=== PATIENT | female | born 1950 | race Caucasian/White ===

== ENCOUNTER 2019-11-19 13:42 | Outpatient (RCR) | payer SELFPAY | END 2019-11-19 23:59 | disposition home or self-care (01) | LOC: ANHAUDIO 13:42 | PROVIDERS: PCP Family Medicine Adolescent Medicine; Visit Provider Family Medicine Adolescent Medicine | DX: Z46.1 Encounter for fitting and adjustment of hearing aid (principal) | CPT/HCPCS: 99199 ==

== ENCOUNTER 2021-03-02 11:00 | Outpatient (RCR) | payer MEDICARE, OTHER, SELFPAY ==
--- NOTE | 2020-12-21 09:04 | PCCPR ---
Absent today, not feeling well. Sonja states that her blood sugar was high yesterday and is not feeling well today as a result.
== END 2021-03-02 18:41 | disposition home or self-care (01) ==
LOC: ANHCPREHAB 11:00
PROVIDERS: PCP Physician Assistant; Visit Provider Internal Medicine Cardiovascular Disease
DX: Z95.2 Presence of prosthetic heart valve (principal)
CPT/HCPCS: 93798

== ENCOUNTER 2021-08-22 16:11 | Emergency (ER) | payer MEDICARE, OTHER, SELFPAY ==
--- NOTE | 2021-08-22 16:22 | ED.GENADULT ---
HPI - General Adult General Chief complaint: Fall Stated complaint: Laceration on face Time Seen by Provider: 08/22/21 16:23 Source: patient, family and RN notes reviewed Mode of arrival: ambulatory Limitations: no limitations History of Present Illness HPI narrative: 70-year-old female complaints of lip pain after tripping and falling. Patient states that she got out of her car and tripped over a parking curb and fell forward. Denies any hand shoulder neck back knee or hip pain. No midline tenderness. Denies any loss of consciousness. Bleeding is controlled. Unknown last Tdap Related Data Home Medications Medication Instructions Recorded Confirmed ascorbic acid (vitamin C) 500 mg PO DAILY 12/09/20 12/09/20 aspirin 81 mg PO HS 12/09/20 12/09/20 calcium carb-vit [id number] 1 tablet PO DAILY 12/09/20 12/09/20 [Os-Anmol Ultra] celecoxib [Celebrex] 200 mg PO DAILY 12/09/20 12/09/20 diphenhydramine HCl [Benadryl] 25 mg PO BID 12/09/20 12/09/20 fenofibric acid (choline) 135 mg PO DAILY 12/09/20 12/09/20 [Trilipix] glucosamine-chondroitin [Osteo 2 tablet PO TID 12/09/20 12/09/20 Bi-Flex] hydrochlorothiazide 12.5 mg PO DAILY 12/09/20 12/09/20 levothyroxine 25 mcg PO DAILY 12/09/20 12/09/20 metformin 1,000 mg PO HS 12/09/20 12/09/20 metformin 500 mg PO DAILY 12/09/20 12/09/20 montelukast [Singulair] 10 mg PO HS 12/09/20 12/09/20 yogefgzupoha-uvpzgzpe-dgpepn 1 tablet PO DAILY 12/09/20 12/09/20 [Centrum Silver] omega-3 fatty acids-vitamin E 1 cap BID 12/09/20 12/09/20 [Fish Oil] ramipril 10 mg PO DAILY 12/09/20 12/09/20 rosuvastatin 20 mg PO HS 12/09/20 12/09/20 Allergies Allergy/AdvReac Type Severity Reaction Status Date / Time No Known Allergies Allergy Unverified 03/23/13 18:36 Review of Systems Review of Systems: All systems reviewed & are unremarkable except as noted in HPI and below Constitutional: Constitutional: Reports no additional constitutional complaints, Denies chills and Denies fever(s) Eyes: Eyes: Reports no additional eye complaints ENT: Reports system reviewed and no additional complaints, except as documented Cardiovascular: Cardiovascular: Reports no additional cardiovascular complaints and Denies chest pain Respiratory: Respiratory: Reports no additional respiratory complaints, Denies cough and Denies dyspnea Gastrointestinal: Gastrointestinal: Reports no additional gastrointestinal complaints, Denies abdominal pain, Denies nausea and Denies vomiting Musculoskeletal: Musculoskeletal: Reports no additional musculoskeletal complaints Integumentary/Breasts: Skin/Breast: Reports as per HPI Comments: Top lip abrasion with small puncture wound Neurologic: Reports system reviewed and no additional complaints, except as documented, Denies confusion, Denies vertigo, Denies dizziness, Denies syncope, Denies headache(s), Denies focal weakness, Denies numbness and Denies weakness Psychiatric: Psychiatric: Reports no additional psychiatric complaints Allergic/Immunologic: Allergic/Immunologic: Reports no additional allergic/immunologic complaints [facility] Family History Family History Mother Hypertension Father Hypertension Heart disease Heart attack Social History Social History Smoking packs per day: 1 Smoking cigarettes per day: 20.0 Years smoked: 20 Smoking pack-years: 20.00 Smoking status: Former smoker Tobacco type: cigarettes Comments At the time of my signature, I reviewed and agree with the nursing past medical, surgical, social, and family history. There is no relevant family history pertinent to the patient complaint. Exam Const: General: healthy appearing, no acute distress and alert Nutritional Appearance: well nourished Orientation/consciousness: patient oriented x3 Limitations: no limitations HENMT: Head: normal to inspection Ears: external
[2021-08-22 16:29] VITALS: BP 180/69; PULSE 73; RESP 16; TEMP 36.9; O2SAT 100
[2021-08-22] MEDS: TETANUS,DIPHTHERIA,AC PERTUSSIS ADULT (0.5 ML) BOOSTRIX IM (16:55)
== END 2021-08-22 17:25 | disposition home or self-care (01) ==
PROVIDERS: Emergency Provider Nurse Practitioner; PCP Physician Assistant
DX: S01.531A Puncture wound without foreign body of lip, initial encounter (principal); W01.0XXA Fall on same level from slipping, tripping and stumbling without subsequent striking against object, initial encounter; Z87.891 Personal history of nicotine dependence
CPT/HCPCS: 12011; 90471; 90715; 99213; G0463

== ENCOUNTER 2022-03-06 12:41 | Outpatient (CLI) | payer MEDICARE, OTHER, SELFPAY | END 2022-03-06 12:42 | disposition home or self-care (01) | LOC: ANHAUDIO 12:42 | PROVIDERS: PCP Physician Assistant; Visit Provider Physician Assistant | DX: H90.3 Sensorineural hearing loss, bilateral (principal) | CPT/HCPCS: 92557; 92567 ==

== ENCOUNTER 2025-01-14 14:08 | Emergency (ER) | payer MEDICARE, OTHER, SELFPAY ==
--- NOTE | ~2025-01-14 | XR_ITS ---
EXAMINATION: XR abdomen/kub 1V DATE: 01/14/2025 14:34 INDICATION: Abdominal pain and constipation TECHNIQUE: A supine view of the abdomen on 2 radiographs was obtained. COMPARISON: None. FINDINGS: Moderate amount of stool scattered throughout the colon. No dilated loops of gas-filled bowel to suggest obstruction. A few phleboliths in the left hemipelvis. Severe lumbar spondylosis. Cholecystectomy clips in the right upper quadrant. Mild reticular opacities at the bilateral lung bases. Heart size is normal. Median sternotomy wires. IMPRESSION: 1. Moderate amount of colonic stool. No dilated bowel to suggest obstruction. 2. Mild reticular opacities at the bilateral lung bases which could be due to atelectasis, mild pulmonary edema, pneumonia or chronic interstitial lung disease. Reviewed, dictated and finalized at location A. IMPRESSION: 1. Moderate amount of colonic stool. No dilated bowel to suggest obstruction. 2. Mild reticular opacities at the bilateral lung bases which could be due to a telectasis, mild pulmonary edema, pneumonia or chronic interstitial lung diseas e.
[2025-01-14 14:17] VITALS: BP 136/54; PULSE 63; RESP 16; TEMP 37.1; O2SAT 98
--- NOTE | 2025-01-14 14:20 | ED.ABDPAIN ---
HPI - Abdominal Pain General Chief Complaint: Nausea/Vomiting/Diarrhea Stated Complaint: Abdominal/Back Pain/Constipation Time Seen by Provider: 01/14/25 14:10 Source: patient Mode of arrival: ambulatory Limitations: no limitations History of Present Illness HPI narrative: Patient is a 74-year-old female who presents with 10 days of right lower quadrant abdominal pain that is sharp at times at a 7/10 and goes away. Currently 4/10. Also reports intermittent right low back pain that has improved over time. Reports she has not had a bowel movement in 3 days in the last 1 she had was hard and only small amounts. Recently started on new diabetes medication. Has taken 1 stool softener and Tylenol and ibuprofen for pain. Call PCP today and was told to come to urgent care as a cannot get her in today or tomorrow. Denies any fever, chills or any urinary issues. Related Data Home Medications ?Medication ?Instructions ?Recorded ?Confirmed ?Last Taken ?Type ascorbic acid (vitamin C) 500 mg 500 mg PO DAILY 12/09/20 12/09/20 Unknown History capsule aspirin 81 mg tablet 81 mg PO HS 12/09/20 12/09/20 Unknown History calcium 600 mg (1,500 mg)-vit 1 tablet PO DAILY 12/09/20 12/09/20 Unknown History C-vit D2 200 unit-vit E-minerals tablet celecoxib 200 mg capsule (Celebrex) 200 mg PO DAILY 12/09/20 12/09/20 Unknown History diphenhydramine HCl 25 mg capsule 25 mg PO BID 12/09/20 12/09/20 Unknown History (Benadryl) fenofibric acid (choline) 135 mg 135 mg PO DAILY 12/09/20 12/09/20 Unknown History capsule,delayed release (Trilipix) glucosamine-chondroitin 250 mg-200 2 tablet PO TID 12/09/20 12/09/20 Unknown History mg tablet (Osteo Bi-Flex) hydrochlorothiazide 12.5 mg capsule 12.5 mg PO DAILY 12/09/20 12/09/20 Unknown History levothyroxine 25 mcg tablet 25 mcg PO DAILY 12/09/20 12/09/20 Unknown History metformin 1,000 mg tablet 1,000 mg PO HS 12/09/20 12/09/20 Unknown History metformin 500 mg tablet 500 mg PO DAILY 12/09/20 12/09/20 Unknown History montelukast 10 mg tablet 10 mg PO HS 12/09/20 12/09/20 Unknown History (Singulair) zhonlgaaafhs-fwbmbmgz-dhejdi tablet 1 tablet PO DAILY 12/09/20 12/09/20 Unknown History omega-3 fatty acids-vitamin E 1 cap BID 12/09/20 12/09/20 Unknown History 1,000 mg capsule rosuvastatin 20 mg tablet 20 mg PO HS 12/09/20 12/09/20 Unknown History ramipril 10 mg capsule mg 01/14/25 Unknown History semaglutide 14 mg tablet (Rybelsus) mg PO 01/14/25 Unknown History Allergies Allergy/AdvReac Type Severity Reaction Status Date / Time No Known Allergies Allergy Verified 01/14/25 14:14 Review of Systems Review of Systems: All systems reviewed & are unremarkable except as noted in HPI and below Constitutional: Constitutional: Denies body ache(s), Denies chills, Denies fatigue, Denies fever(s), Denies headache(s), Denies malaise and Denies weakness Eyes: Eyes: Denies blurry vision, Denies irritation and Denies loss of vision ENT: Denies otalgia, Denies headache(s), Denies nasal discharge, Denies sinus pain and Denies sore throat Cardiovascular: Cardiovascular: Denies chest pain, Denies irregular heart rhythm and Denies dyspnea Respiratory: Respiratory: Denies dyspnea Gastrointestinal: Gastrointestinal: Reports abdominal pain, Denies melena, Denies hematochezia, Reports constipation, Denies diarrhea, Denies nausea and Denies vomiting Musculoskeletal: Musculoskeletal: Denies back pain, Denies myalgias and Denies arthralgias Integumentary/Breasts: Skin/Breast: Denies pruritus and Denies rash Neurologic: Denies headache(s), Denies loss of vision and Denies weakness Psychiatric: Psychiatric: Reports no additional psychiatric complaints Endocrine: Endocrine: Denies fatigue [facility] Family History Family History Mother Hypertension Father Hypertension Heart disease Heart attack Social History Social History Smoking packs per day: 1 Smoking cigarettes per day: 20.0 Years smoked: 20 Smoking pack-years: 20.00 Smoking status: Former smoker Tobacco type: cigarettes Comments At time of signature, agree with nursing past medical, surgical, social and family history. There is no relevant family history pertinent to the presenting complaint. Exam Const: General: cooperative, healthy appearing, comfortable, no acute distress and well nourished Nutritional Appearance: well nourished Orientation/consciousness: patient oriented x3 Limitations: no limitations HENMT: Head: normal to inspection, normocephalic and atraumatic Ears: hearing grossly normal bilaterally and external ears normal Face/Nose/Sinus: Normal external nose present, normal facial exam and face symmetric Face and sinus: normal facial exam and face symmetric Mouth: Yes lip normal Eyes: General: appearance normal, both eyes and all related structures Alignment and Position: alignment normal and position normal Periorbital: periorbital findings normal Eyelids: eyelids normal Pupils: Equal, round and reactive pupils present EOM: EOMs intact bilaterally Neck: Neck: normal visual inspection, full ROM and supple Chest: Chest palpation & inspection: normal inspection of the chest Resp: Effort & Inspection: normal respiratory effort and able to speak in complete sentences Auscultation: clear to auscultation bilaterally Cardio: Rate: regular rate Rhythm: regular rhythm Heart sounds: S1 normal heart sound present and S2 normal heart sound present GI: Inspection: normal to inspection GI Palp: Yes Soft to palpation, Yes Tenderness to palpation present (GI) (Right lower quadrant), No Guarding due to palpation present (GI) and No Rebound tenderness present Auscultation: normal bowel sounds Rectal Exam: deferred Skin: General skin exam: normal color and no rashes or lesions noted Neuro: General: patient oriented x3 and moves all extremities Cranial nerves: Yes Equal, round and reactive pupils present Speech: normal speech Gait exam (Neuro): Normal gait present Extrem: General: normal to inspection, full ROM and no edema Psych: Appearance: grossly normal and well kempt Mental Status: mental status grossly normal Speech and movement: Normal speech and movement present Affect: normal affect Attitude: cooperative Thought process: Normal thought process present Course Course Emergency Course: Patient is aware of diagnosis, understands and agrees to treatment plan. Anticipatory guidance given. Patient agrees to follow-up as directed and is aware of reasons to seek care at the emergency department. Portions of this record may have been created with voice recognition software Level of Care: Express Care Visit Vital Signs Vital signs: Reviewed MDM - Abdominal Pain MDM Narrative Medical decision making narrative: Discussed transfer to emergency department for further workup and evaluation based on abdominal pain symptoms and x-ray results. X-ray showing concern for possible pneumonia. Lung sounds clear throughout. Patient also has not had any cough, shortness breath, fever. Patient appears comfortable and not in acute discomfort. Discussed taking stool softeners and MiraLax at home over the next few days and follow-up with PCP on Saturday. States she will go to the emergency department if symptoms worsen or any new symptoms develop. Also states if she does not have bowel movement with medications she will be seen in the ER. Pt well hydrated appearing, in no respiratory distress, hemodynamically stable. Recommend supportive care. The patient is stable at time of discharge the clinical impression was discussed and the patient was given the opportunity to ask questions, which were addressed as completely as possible given the information available at present. Anticipatory guidance and return to care precautions were discussed and the importance of primary care follow-up was stressed and encouraged. The patient voiced understanding of the plan, indications to return, and the need for follow-up. Exam findings show no acute concerns or changes Patient is appropriate for outpatient treatment and follow-up. Differential Diagnosis Differential diagnosis: Likely abdominal pain and constipation Medical Records Attestation: I reviewed the patient's medical records. Imaging Data Radiologist's impression: EXAMINATION: XR abdomen/kub 1V DATE: 01/14/2025 14:34 INDICATION: Abdominal pain and constipation TECHNIQUE: A supine view of the abdomen on 2 radiographs was obtained. COMPARISON: None. FINDINGS: Moderate amount of stool scattered throughout the colon. No dilated loops of gas-filled bowel to suggest obstruction. A few phleboliths in the left hemipelvis. Severe lumbar spondylosis. Cholecystectomy clips in the right upper quadrant. Mild reticular opacities at the bilateral lung bases. Heart size is normal. Median sternotomy wires. IMPRESSION: 1. Moderate amount of colonic stool. No dilated bowel to suggest obstruction. 2. Mild reticular opacities at the bilateral lung bases which could be due to atelectasis, mild pulmonary edema, pneumonia or chronic interstitial lung disease. Discharge Plan Discharge Clinical Impression: Constipation Qualifiers: Constipation type: other constipation type Qualified Code(s): K59.09 - Other constipation Patient Disposition: Home Condition: Stable Instructions: Constipation (ED) Additional Instructions: Take Senokot 1-3 tabs, ingest with full glass of water. Also take Miralax 1 capful twice daily until bowel movements are regular. To maintain soft stools after constipation is relieved, you may take Colace 100-200 mg up to three times per day. Maintain fluid intake 6-8 glasses per day. Please increase fibers (fruits and vegetables) in your diet, or use bulk fiber supplements. Decrease or eliminate intake of fast food and junk foods. Patient Language: [place] Prescriptions: No Action ramipril 10 mg capsule Rybelsus 14 mg tablet PO celecoxib [Celebrex] 200 mg Capsule 200 mg PO DAILY metformin 500 mg Tablet 500 mg PO DAILY levothyroxine 25 mcg Tablet 25 mcg PO DAILY diphenhydramine HCl [Benadryl] 25 mg Capsule 25 mg PO BID metformin 1,000 mg Tablet 1,000 mg PO HS hydrochlorothiazide 12.5 mg Capsule 12.5 mg PO DAILY montelukast [Singulair] 10 mg Tablet 10 mg PO HS aspirin 81 mg Tablet 81 mg PO HS Centrum Silver Tablet 1 tablet PO DAILY glucosamine-chondroitin [Osteo Bi-Flex] 250-200 mg Tablet 2 tablet PO TID Fish Oil 1,000 mg Capsule 1 cap BID rosuvastatin 20 mg Tablet 20 mg PO HS Os-Anmol Ultra 600 mg (1,500 mg)-200 unit Tablet 1 tablet PO DAILY fenofibric acid (choline) [Trilipix] 135 mg Capsule,Delayed Release(Dr/Ec) 135 mg PO DAILY ascorbic acid (vitamin C) 500 mg Capsule 500 mg PO DAILY Follow-up/Referrals: Alex,ANTHONY Barreto [Primary Care Provider, Unknown] - 3 Days Time of Disposition: 15:41
== END 2025-01-14 15:45 | disposition home or self-care (01) ==
PROVIDERS: Emergency Provider Nurse Practitioner Family; PCP Physician Assistant
DX: K59.09 Other constipation (principal); Z87.891 Personal history of nicotine dependence; Z79.82 Long term (current) use of aspirin; I25.10 Atherosclerotic heart disease of native coronary artery without angina pectoris; R01.1 Cardiac murmur, unspecified; E11.9 Type 2 diabetes mellitus without complications; Z79.84 Long term (current) use of oral hypoglycemic drugs; I10 Essential (primary) hypertension; E78.00 Pure hypercholesterolemia, unspecified; M19.90 Unspecified osteoarthritis, unspecified site; Z95.3 Presence of xenogenic heart valve; Z96.653 Presence of artificial knee joint, bilateral; Z85.828 Personal history of other malignant neoplasm of skin
CPT/HCPCS: 74018; 99213; G0463

== ENCOUNTER 2025-03-09 13:31 | Outpatient (CLI) | payer MEDICARE, OTHER, SELFPAY ==
--- NOTE | ~2025-03-09 | DEXA_ITS ---
Bone Density Report Name: GER GLORIA Age: 74 Sex: Female Ethnicity: White Date of : 1950 Indication: postmenopausal; screening for osteoporosis; height loss; Referring Provider: JASWINDER, MAYE Study: Bone densitometry was performed. Exam Date: March 09, 2025 Accession number: [id number] Bone Density: Region BMD T-score Z-score Classification AP Spine(L2, L3, L4) 1.800 6.6 9.1 Normal Femoral Neck (Left) 0.882 0.3 2.4 Normal Total Hip (Left) 0.990 0.4 2.2 Normal Femoral Neck (Right) 0.860 0.1 2.2 Normal Total Hip (Right) 1.000 0.5 2.3 Normal Total Hip Mean 0.995 0.5 2.3 Normal World Health Organization criteria for BMD impression classify patients as: Normal (T-score at or above -1.0), Osteopenia (T-score between -1.0 and -2.5), or Osteoporosis (T-score at or below -2.5). 10-year Fracture Risk: FRAX not reported because: All T-scores for Spine Total, Hip Total, Femoral Neck at or above -1.0 Clinical Information Provided by Patient: Patient maximum height was 71.5 Menopause Age: 50 No regular weight bearing exercise Onset of menses at age 13 Number of children 0 Impression: The patient has normal bone mass. Discussion: LOW RISK OF FRACTURE; BONE DENSITY IS WELL ABOVE THE MINIMUM DESIRABLE LEVEL AND ABOVE AVERAGE FOR AGE AND SEX AT ALL SKELETAL SITES TESTED. This person's bone density is above expected limits for age and sex. This is rarely clinically significant, but should be pursued if there are significant musculoskeletal complaints. The patient should follow a healthful lifestyle (good nutrition with adequate calcium and vitamin D, and appropriate weight-bearing exercise). Follow-Up: Consider repeating this study in 5 years or sooner if there is some new clinical indication. Reported by: AGUSTÍN on 03/09/2025 2:27:00 PM. Reviewed, dictated and finalized at location A.
== END 2025-03-09 13:32 | disposition home or self-care (01) ==
LOC: MICIMG 13:32
PROVIDERS: PCP Physician Assistant; Visit Provider Physician Assistant
DX: Z78.0 Asymptomatic menopausal state (principal)
CPT/HCPCS: 77080